=== PATIENT | female | born 1970 | race Caucasian/White ===

== ENCOUNTER → 2020-04-23 | Outpatient (CLI) | payer MEDICAID ==
--- NOTE | 2020-04-23 15:39 | US ---
EXAMINATION TYPE: US pelvic complete DATE OF EXAM: 04/23/2020 COMPARISON: NONE CLINICAL HISTORY: R10.2 pelvic pain, N83.0 ovarian cyst. Intermittent left pelvic pain; family histor y of ovarian cancer in grandmother and maternal aunt; hysterectomy 2010. TECHNIQUE: Transvaginal (TV) and Transabdominal (TA) . Transabdominal sonographic images of the pel vis were acquired. Transvaginal sonographic images were medically necessary to better assess the fol lowing anatomy: ovaries Date of LMP: 2010 hysterectomy EXAM MEASUREMENTS: Uterus: surgically removed Endometrial Stripe: surgically removed Right Ovary: 3.7 x 3.9 x 2.4 cm transvaginally Left Ovary: 3.5 x 3.6 x 1.9 cm transabdominally 1. Uterus: surgically absent 2. Endometrium: surgically absent 3. Right Ovary: couple of follicles seen with larger = 2.6 x 2.0 x 2.3cm 4. Left Ovary: not seen with TV US; couple of follicle seen TA US with larger = 1.9 x 1.9 x 1.5cm Spectral, color and waveform doppler imaging shows good arterial and venous flow within the right o vary. Left ovary was not well seen for vascular assessment. 5. Bilateral Adnexa: wnl 6. Posterior cul-de-sac: wnl Suboptimal study due to body habitus and overlying bowel gas per technologist. Uterus surgically abse nt. No free fluid in pelvis. Both ovaries identified. Right ovary has incidental 2.6 cm thin-walled cyst or dominant follicle. No suspicious adnexal masses. IMPRESSION: Suboptimal study. No suspicious focal mass identified to account for patient's symptoms o f pain.
== END | disposition home or self-care (01) ==
LOC: RADUSWWP 11:12
PROVIDERS: ATTEND Obstetrics & Gynecology
DX: R10.2 Pelvic and perineal pain (principal); N83.02 Follicular cyst of left ovary
CPT/HCPCS: 76830; 76856

== ENCOUNTER → 2020-06-04 | Outpatient (CLI) | payer MEDICAID ==
--- NOTE | 2020-06-05 07:39 | CT ---
EXAMINATION TYPE: CT abdomen pelvis w con DATE OF EXAM: 06/04/2020 HISTORY: EPIGASTRIC PAIN, NAUSEA, bloating. CT DLP: 2961.3mGycm Automated Exposure Control for Dose Reduction was Utilized. CONTRAST: CT scan of the abdomen and pelvis is performed with IV Contrast, patient injected with 100 mL of Isov ue 300. COMPARISON: None. FINDINGS: LUNG BASES: No significant abnormality is appreciated. LIVER/GB: Liver is diffusely low dense suggesting diffuse fatty infiltration. In the posterior segmen t right hepatic lobe inferiorly there is heterogeneous rim enhancing 4.0 cm lesion that appears to sh ow some increased central filling on delayed images, benign hemangioma is suspected. This can be conf irmed with liver protocol contrast-enhanced MRI if desired. Cholecystectomy clips. PANCREAS: No significant abnormality is seen. SPLEEN: No significant abnormality is seen. ADRENALS: No significant abnormality is seen. KIDNEYS: Symmetric cortical medullary uptake and excretion without concerning renal mass or hydroneph rosis seen bilaterally. BOWEL: Oral contrast does not reach level of terminal ileum making evaluation of distal bowel slightl y suboptimal. No suspicious small or large bowel dilatation. UTERUS/ADNEXA: Uterus surgically absent or markedly atrophic. Scattered bilateral pelvic phleboliths. LYMPH NODES: No greater than 1cm abdominal or pelvic lymph nodes are appreciated. OSSEOUS STRUCTURES: Moderate multilevel disc space narrowing and vacuum disc phenomenon centered lowe r thoracic spine and upper lumbar spine. Mild to moderate symmetric narrowing of both hip joints. OTHER: Small to moderate-sized umbilical hernia containing fat and tiny mesenteric vessels. Vertical scar noted extending inferior to this. IMPRESSION: No bowel obstruction. No ascites. No significant acute finding is seen to account for pat ient's clinical symptoms.
== END | disposition home or self-care (01) ==
LOC: RADCTMAIN 05-20 17:19
PROVIDERS: ATTEND Obstetrics & Gynecology
DX: N83.201 Unspecified ovarian cyst, right side (principal)
CPT/HCPCS: 74177; Q9967

== ENCOUNTER → 2020-09-30 | Outpatient (CLI) | payer MEDICAID ==
--- NOTE | 2020-09-30 13:51 | US ---
EXAMINATION TYPE: US pelvis complete transvag DATE OF EXAM: 09/30/2020 COMPARISON: CLINICAL HISTORY: R10.2 pelvic pain. Patient states she feels a pulling in pelvic area. Weight gain. Family hx of ovarian cancer. Partial hysterectomy, still has both ovaries per patient TECHNIQUE: Transvaginal (TV) and Transabdominal (TA) . Transabdominal sonographic images of the pel vis were acquired. Transvaginal sonographic images were medically necessary to better assess the fol lowing anatomy: Ovaries Date of LMP: Hysterectomy EXAM MEASUREMENTS: Uterus: Surgically absent cm Endometrial Stripe: Surgically absent cm 1. Uterus: Surgically absent 2. Endometrium: Surgically absent 3. Right Ovary: Obscured by overlying bowel gas 4. Left Ovary: Obscured by overlying bowel gas 5. Bilateral Adnexa: wnl 6. Posterior cul-de-sac: no free fluid Urinary bladder is sonolucent. The posterior wall is normal. IMPRESSION: 1. Normal post hysterectomy pelvic ultrasound
== END | disposition home or self-care (01) ==
LOC: RADUSWWP 07:05
PROVIDERS: ATTEND Obstetrics & Gynecology
DX: R10.2 Pelvic and perineal pain (principal); Z90.710 Acquired absence of both cervix and uterus
CPT/HCPCS: 76830; 76856

== ENCOUNTER 2020-10-08 18:28 | Inpatient (IN) | payer MEDICAID ==
[2020-10-08] MEDS ORDERED: methylPREDNISolone SOD SUCCI 125 MG/2 ML VIAL IV STA (19:15)
[2020-10-08] MEDS ORDERED: FAMOTIDINE 20 MG/2 ML VIAL IV STA (19:15)
[2020-10-08] MEDS ORDERED: diphenhydrAMINE 50 MG/ML 1 ML VIAL IVP STA (19:15)
[2020-10-08 19:34] LABS: Appearance,Urine Clear (Clear); Bilirubin,Urine Negative (Negative); Blood,Urine Negative (Negative); Color,Urine Yellow; Glucose,Urine (UA) Negative (Negative); Ketones,Urine Negative (Negative); Leukocyte Esterase,Urine Negative (Negative); Nitrite,Urine Negative (Negative); PH, Urine 6.5 (5.0-8.0); Protein,Urine Negative (Negative); Specific Gravity,Urine 1.011 (1.001-1.035); Urobilinogen,Urine <2.0 mg/dL (<2.0)
[2020-10-08 19:35] LABS: Basophils # (A) 0.1 k/uL (0-0.2); Basophils % (A) 1 %; Eosinophils # (A) 0.5 k/uL (0-0.7); Eosinophils % (A) 4 %; HCT 43.6 % (34.0-46.0); HGB 15.1 gm/dL (11.4-16.0); Lymphocytes # (A) 1.6 k/uL (1.0-4.8); Lymphocytes % (A) 15 %; MCH 31.3 pg (25.0-35.0); MCHC 34.6 g/dL (31.0-37.0); MCV 90.4 fL (80.0-100.0); Mean Platelet Volume 7.3; Monocytes # (A) 0.4 k/uL (0-1.0); Monocytes % (A) 4 %; Neutrophils # (A) 8.1 k/uL (1.3-7.7); Neutrophils % (A) 75 %; Platelet Count 287 k/uL (150-450); RBC 4.82 m/uL (3.80-5.40); RDW 12.9 % (11.5-15.5); WBC 10.7 k/uL (3.8-10.6)
[2020-10-08 19:54] LABS: ALT 187 U/L (4-34); AST 293 U/L (14-36); African American GFR (CKD) >90 (>60 ml/min/1.73 sqM); Albumin 4.4 g/dL (3.5-5.0); Alkaline Phosphatase 139 U/L (38-126); Anion Gap 10 mmol/L; Blood Urea Nitrogen 16 mg/dL (7-17); Carbon Dioxide 28 mmol/L (22-30); Chloride 101 mmol/L (98-107); Glucose 106 mg/dL (74-99); Non-African American GFR(CKD) >90 (>60 ml/min/1.73 sqM); Potassium 4.4 mmol/L (3.5-5.1); Sodium 139 mmol/L (137-145); Total Bilirubin 0.5 mg/dL (0.2-1.3); Total Protein 7.7 g/dL (6.3-8.2)
[2020-10-08 19:55] LABS: Partial Thromboplastin Time 22.4 sec (22.0-30.0); Prothrombin Time 10.4 sec (9.0-12.0)
[2020-10-08 20:28] LABS: Lipase 7471 U/L (23-300)
[2020-10-08 20:29] LABS: Amylase 839 U/L (30-110)
--- NOTE | 2020-10-08 20:49 | ED ---
General Adult HPI - General Chief complaint: Recheck/Abnormal Lab/Rx Stated complaint: Pancreatitis Time Seen by Provider: 10/08/20 18:41 Source: patient, EMS, RN notes reviewed, old records reviewed Mode of arrival: EMS Limitations: no limitations - History of Present Illness Initial comments: 50-year-old female presented for evaluation of abdominal pain, and acute pancreatitis. Patient was seen at outside hospital, noted to have elevated lipase and sent to this institution for GI consultation, further evaluation. She states she had an episode of severe epigastric pain prior to ER evaluation. This was associated with nausea. She had previous cholecystectomy. She denies alcohol use or abuse. Denies fever. She reports some intermittent ongoing abdominal pain over the past one year. - Related Data Home Medications Medication Instructions Recorded Confirmed Calcium Carbonate [Calcium] 600 mg PO DAILY 10/08/20 10/08/20 Cholecalciferol [Vitamin D3 (25 25 mcg PO DAILY 10/08/20 10/08/20 Mcg = 1000 Iu)] Famotidine [Pepcid AC] 20 mg PO BID PRN 10/08/20 10/08/20 Fluticasone Nasal [place] [Flonase 1 spray EA NOSTRIL DAILY PRN 10/08/20 10/08/20 Nasal [place]] Furosemide [Lasix] 40 mg PO BID PRN 10/08/20 10/08/20 Ibuprofen [Motrin] 600 mg PO DAILY PRN 10/08/20 10/08/20 Magnesium Oxide [Magox 400] 400 mg PO DAILY 10/08/20 10/08/20 Potassium Chloride ER [K-Dur 10] 20 meq PO BID PRN 10/08/20 10/08/20 Allergies Allergy/AdvReac Type Severity Reaction Status Date / Time butorphanol [From Stadol] Allergy Rash/Hives Verified 10/08/20 19:53 cefazolin [From Kefzol] Allergy Rash/Hives Verified 10/08/20 19:53 meperidine [From Demerol] Allergy Rash/Hives Verified 10/08/20 19:53 morphine Allergy Anaphylaxis Verified 10/08/20 19:53 Review of Systems ROS Statement: Those systems with pertinent positive or pertinent negative responses have been documented in the HPI. ROS Other: All systems not noted in ROS Statement are negative. Past Medical History Past Medical History: Fibromyalgia, Hypertension History of Any Multi-Drug Resistant Organisms: None Reported Past Surgical History: Appendectomy, Section, Cholecystectomy, Hysterectomy Past Psychological History: No Psychological Hx Reported Smoking Status: Former smoker Past Alcohol Use History: None Reported Past Drug Use History: None Reported General Exam Limitations: no limitations General appearance: alert, in no apparent distress Head exam: Present: atraumatic, normocephalic Eye exam: Present: normal appearance, PERRL ENT exam: Present: mucous membranes dry Neck exam: Present: normal inspection. Absent: tenderness, meningismus Respiratory exam: Present: normal lung sounds bilaterally. Absent: respiratory distress, wheezes Cardiovascular Exam: Present: regular rate, normal rhythm GI/Abdominal exam: Present: soft, tenderness. Absent: distended, guarding, rebound Extremities exam: Present: normal capillary refill, pedal edema. Absent: calf tenderness Neurological exam: Present: alert, oriented X3, CN II-XII intact. Absent: motor sensory deficit Skin exam: Present: warm, dry, intact. Absent: cyanosis, diaphoretic Course Vital Signs 10/08/20 18:30 Temperature 99.8 F H Pulse Rate 86 Respiratory 18 Rate Blood Pressure 143/84 O2 Sat by Pulse 87 L Oximetry EKG Findings - EKG Comments: EKG Findings:: EKG: Normal sinus rhythm left anterior fascicular block, no ST segment elevation, rate of 90, AR interval 150, QRS duration 92, QTc 457 Medical Decision Making - Medical Decision Making CT performed, negative for acute findings. Labs are repeated patient has a CBC with a mild leukocytosis and elevated AST, ALT, alkaline phosphatase and elevated lipase of 7400. She will be admitted to internal medicine with gastroenterology on consult. Case is discussed with Dr. Braun - Lab Data Result diagrams: 10/08/20 19:34 10/08/20 19:34 Lab Results 10/08/20 10/08/20 10/08/20 Range/Units 19:34 19:34 19:34 WBC 10.7 H (3.8-10.6) k/uL RBC 4.82 (3.80-5.40) m/uL Hgb 15.1 (11.4-16.0) gm/dL Hct 43.6 (34.0-46.0) % MCV 90.4 (80.0-100.0) fL MCH 31.3 (25.0-35.0) pg MCHC 34.6 (31.0-37.0) g/dL RDW 12.9 (11.5-15.5) % Plt Count 287 (150-450) k/uL MPV 7.3 Neutrophils % 75 % Lymphocytes % 15 % Monocytes % 4 % Eosinophils % 4 % Basophils % 1 % Neutrophils # 8.1 H (1.3-7.7) k/uL Lymphocytes # 1.6 (1.0-4.8) k/uL Monocytes # 0.4 (0-1.0) k/uL Eosinophils # 0.5 (0-0.7) k/uL Basophils # 0.1 (0-0.2) k/uL PT 10.4 (9.0-12.0) sec INR 1.0 (<1.2) APTT 22.4 (22.0-30.0) sec Sodium (137-145) mmol/L Potassium (3.5-5.1) mmol/L Chloride (98-107) mmol/L Carbon Dioxide (22-30) mmol/L Anion Gap mmol/L BUN (7-17) mg/dL Creatinine (0.52-1.04) mg/dL Est GFR (CKD-EPI)AfAm (>60 ml/min/1.73 sqM) Est GFR (CKD-EPI)NonAf (>60 ml/min/1.73 sqM) Glucose (74-99) mg/dL Calcium (8.4-10.2) mg/dL Total Bilirubin (0.2-1.3) mg/dL AST (14-36) U/L ALT (4-34) U/L Alkaline Phosphatase (38-126) U/L Troponin I (0.000-0.034) ng/mL NT-Pro-B Natriuret Pep pg/mL Total Protein (6.3-8.2) g/dL Albumin (3.5-5.0) g/dL Amylase (30-110) U/L Lipase (23-300) U/L Urine Color Urine Appearance (Clear) Urine pH (5.0-8.0) Ur Specific [place] (1.001-1.035) Urine Protein (Negative) Urine Glucose (UA) (Negative) Urine Ketones (Negative) Urine Blood (Negative) Urine Nitrite (Negative) Urine Bilirubin (Negative) Urine Urobilinogen (<2.0) mg/dL Ur Leukocyte Esterase (Negative) Coronavirus (PCR) Not Detected (Not Detectd) 10/08/20 10/08/20 10/08/20 Range/Units 19:34 19:34 19:34 WBC (3.8-10.6) k/uL RBC (3.80-5.40) m/uL Hgb (11.4-16.0) gm/dL Hct (34.0-46.0) % MCV (80.0-100.0) fL MCH (25.0-35.0) pg MCHC (31.0-37.0) g/dL RDW (11.5-15.5) % Plt Count (150-450) k/uL MPV Neutrophils % % Lymphocytes % % Monocytes % % Eosinophils % % Basophils % % Neutrophils # (1.3-7.7) k/uL Lymphocytes # (1.0-4.8) k/uL Monocytes # (0-1.0) k/uL Eosinophils # (0-0.7) k/uL Basophils # (0-0.2) k/uL PT (9.0-12.0) sec INR (<1.2) APTT (22.0-30.0) sec Sodium 139 (137-145) mmol/L Potassium 4.4 (3.5-5.1) mmol/L Chloride 101 (98-107) mmol/L Carbon Dioxide 28 (22-30) mmol/L Anion Gap 10 mmol/L BUN 16 (7-17) mg/dL Creatinine 0.63 (0.52-1.04) mg/dL Est GFR (CKD-EPI)AfAm >90 (>60 ml/min/1.73 sqM) Est GFR (CKD-EPI)NonAf >90 (>60 ml/min/1.73 sqM) Glucose 106 H (74-99) mg/dL Calcium 10.0 (8.4-10.2) mg/dL Total Bilirubin 0.5 (0.2-1.3) mg/dL AST 293 H (14-36) U/L ALT 187 H (4-34) U/L Alkaline Phosphatase 139 H (38-126) U/L Troponin I <0.012 (0.000-0.034) ng/mL NT-Pro-B Natriuret Pep pg/mL Total Protein 7.7 (6.3-8.2) g/dL Albumin 4.4 (3.5-5.0) g/dL Amylase 839 H* (30-110) U/L Lipase 7471 H (23-300) U/L Urine Color Yellow Urine Appearance Clear (Clear) Urine pH 6.5 (5.0-8.0) Ur Specific [place] 1.011 (1.001-1.035) Urine Protein Negative (Negative) Urine Glucose (UA) Negative (Negative) Urine Ketones Negative (Negative) Urine Blood Negative (Negative) Urine Nitrite Negative (Negative) Urine Bilirubin Negative (Negative) Urine Urobilinogen <2.0 (<2.0) mg/dL Ur Leukocyte Esterase Negative (Negative) Coronavirus (PCR) (Not Detectd) 10/08/20 Range/Units 19:34 WBC (3.8-10.6) k/uL RBC (3.80-5.40) m/uL Hgb (11.4-16.0) gm/dL Hct (34.0-46.0) % MCV (80.0-100.0) fL MCH (25.0-35.0) pg MCHC (31.0-37.0) g/dL RDW (11.5-15.5) % Plt Count (150-450) k/uL MPV Neutrophils % % Lymphocytes % % Monocytes % % Eosinophils % % Basophils % % Neutrophils # (1.3-7.7) k/uL Lymphocytes # (1.0-4.8) k/uL Monocytes # (0-1.0) k/uL Eosinophils # (0-0.7) k/uL Basophils # (0-0.2) k/uL PT (9.0-12.0) sec INR (<1.2) APTT (22.0-30.0) sec Sodium (137-145) mmol/L Potassium (3.5-5.1) mmol/L Chloride (98-107) mmol/L Carbon Dioxide (22-30) mmol/L Anion Gap mmol/L BUN (7-17) mg/dL Creatinine (0.52-1.04) mg/dL Est GFR (CKD-EPI)AfAm (>60 ml/min/1.73 sqM) Est GFR (CKD-EPI)NonAf (>60 ml/min/1.73 sqM) Glucose (74-99) mg/dL Calcium (8.4-10.2) mg/dL Total Bilirubin (0.2-1.3) mg/dL AST (14-36) U/L ALT (4-34) U/L Alkaline Phosphatase (38-126) U/L Troponin I (0.000-0.034) ng/mL NT-Pro-B Natriuret Pep 93 pg/mL Total Protein (6.3-8.2) g/dL Albumin (3.5-5.0) g/dL Amylase (30-110) U/L Lipase (23-300) U/L Urine Color Urine Appearance (Clear) Urine pH (5.0-8.0) Ur Specific [place] (1.001-1.035) Urine Protein (Negative) Urine Glucose (UA) (Negative) Urine Ketones (Negative) Urine Blood (Negative) Urine Nitrite (Negative) Urine Bilirubin (Negative) Urine Urobilinogen (<2.0) mg/dL Ur Leukocyte Esterase (Negative) Coronavirus (PCR) (Not Detectd) Disposition Clinical Impression: Acute pancreatitis Disposition: ADMITTED IP TO THIS [facility] Condition: Stable Is patient prescribed a controlled substance at d/c from ED?: No Referrals: Nonstaff,Physician [Primary Care Provider] - 1-2 days Decision to Admit Reason: Admit from EC Decision Date: 10/08/20 Decision Time: 22:03
--- NOTE | 2020-10-08 21:47 | CT ---
EXAMINATION TYPE: CT abdomen pelvis w con DATE OF EXAM: 10/08/2020 COMPARISON: 06/04/2020. HISTORY: abdominal pain and distention CT DLP: 3425 mGycm Automated exposure control for dose reduction was used. TECHNIQUE: Helical acquisition of images was performed from the lung bases through the pelvis. CONTRAST: Performed without Oral Contrast and with IV Contrast, patient injected with 100 mL of Isovue 300. FINDINGS: LUNG BASES: No significant abnormality is appreciated. LIVER/GB: No acute abnormality is appreciated. Hepatic steatosis with stable 4 cm hypoattenuating rig ht hepatic lesion with centripetal enhancement, compatible with hemangioma. Cholecystectomy. No signi ficant biliary ductal dilatation. PANCREAS: No significant abnormality is seen. SPLEEN: No significant abnormality is seen. ADRENALS: No significant abnormality is seen. KIDNEYS: No significant abnormality is seen. FREE AIR: No free air is visualized. RETROPERITONEAL ADENOPATHY: None visualized REPRODUCTIVE ORGANS: No significant abnormality is seen URINARY BLADDER: No significant abnormality is seen. PELVIC ADENOPATHY: None visualized. OSSEOUS STRUCTURES: No significant abnormality is seen. BOWEL: No significant abnormality is seen. OTHER: None IMPRESSION: NO ACUTE ABNORMALITY. CHRONIC FINDINGS ABOVE.
[2020-10-08] MEDS ORDERED: NALOXONE 0.4 MG/ML 1 ML VIAL IV PRN (22:01)
--- NOTE | 2020-10-09 02:06 | P.HPIM ---
History of Present Illness H&P Date: 10/09/20 The patient is a 50-year-old female with a PMH of cholecystectomy, hepatic steatosis, and of the brain hemangioma who presented to the emergency room as a transfer for acute pancreatitis. The patient reports that she has had long- standing epigastric discomfort, brought on by exertion and at rest with associated bloating and nausea. The patient notes that she has had these complaints for the past 5-6 months but that her episode today was different. She notes that she had a large meal for [employer] and that soon after, she developed sharp 7 out of 10 bandlike upper abdominal discomfort with associated nausea and shortness of breath. She subsequently went to her local hospital where laboratory evaluation was consistent with pancreatitis and the patient was subsequently send to [facility] for GI evaluation. At time of interview, she notes her pain had improved to a 3/10. The patient notes that due to her exertional component with her history of symptoms, she has been evaluated by cardiology and underwent a cardiac catheterization 6 months ago which was unremarkable. She also reports multiple other complaints including intermittent lower extremity edema for which she takes Lasix when necessary, mild diffuse joint pain, and a 35 lbs weight gain over the past 6 months despite a caloric restricted diet. Notes that she was tested for hypothyroidism and that her TSH was unremarkable. She reports having a scheduled appointment with a sap trainer in a few weeks for her above symptoms. She underwent an extensive evaluation in the emergency room which was all reviewed with a CT abdomen and pelvis showing a stable 4 cm hemangioma along with hepatic steatosis but otherwise unremarkable with laboratory evaluation with a lipase of 7471, amylase a 39, and a total bilirubin 0.5 with AST 293 and ALT 187. Review of Systems Pertinent positives and negatives as discussed in HPI, a complete review of systems was performed and all other systems are negative. Past Medical History Past Medical History: Fibromyalgia, Hypertension History of Any Multi-Drug Resistant Organisms: None Reported Past Surgical History: Appendectomy, Section, Cholecystectomy, Hys terectomy Past Psychological History: No Psychological Hx Reported Smoking Status: Former smoker Past Alcohol Use History: None Reported Past Drug Use History: None Reported Medications and Allergies Home Medications Medication Instructions Recorded Confirmed Type Calcium Carbonate [Calcium] 600 mg PO DAILY 10/08/20 10/08/20 History Cholecalciferol [Vitamin D3 (25 25 mcg PO DAILY 10/08/20 10/08/20 History Mcg = 1000 Iu)] Famotidine [Pepcid AC] 20 mg PO BID PRN 10/08/20 10/08/20 History Fluticasone Nasal [place] [Flonase 1 spray EA NOSTRIL DAILY PRN 10/08/20 10/08/20 History Nasal [place]] Furosemide [Lasix] 40 mg PO BID PRN 10/08/20 10/08/20 History Ibuprofen [Motrin] 600 mg PO DAILY PRN 10/08/20 10/08/20 History Magnesium Oxide [Magox 400] 400 mg PO DAILY 10/08/20 10/08/20 History Potassium Chloride ER [K-Dur 10] 20 meq PO BID PRN 10/08/20 10/08/20 History Allergies Allergy/AdvReac Type Severity Reaction Status Date / Time butorphanol [From Stadol] Allergy Rash/Hives Verified 10/08/20 19:53 cefazolin [From Kefzol] Allergy Rash/Hives Verified 10/08/20 19:53 Iodine and Iodide Containing Allergy Dyspnea Verified 10/09/20 00:18 Produc meperidine [From Demerol] Allergy Rash/Hives Verified 10/08/20 19:53 morphine Allergy Anaphylaxis Verified 10/08/20 19:53 Physical Exam Vitals: Vital Signs Temp Pulse Resp BP Pulse Ox 10/09/20 00:04 98.9 F 74 16 142/78 98 10/08/20 22:00 98.9 F 82 16 148/86 96 10/08/20 18:30 99.8 F H 86 18 143/84 87 L Intake and Output 10/08/20 10/08/20 10/09/20 14:59 22:59 06:59 Other: Weight 142.882 kg General: non toxic, no distress, appears at stated age, severely obese Derm: no unusual rashes/lesions no unusual ecchymoses, warm, dry Head: atraumatic, normocephalic, symmetric Eyes: EOMI, no lid lag, anicteric sclera, pupils equal round reactive to light ENT: Nose and ears atraumatic, no thrush, no pharyngeal erythema Neck: No thyromegaly, no cervical lymphadenopathy, trachea midline, supple Mouth: no lip lesion, mucus membranes moist Cardiovascular: S1S2 reg, no murmur, positive posterior tibial pulse bilateral, no edema, capillary refill less than 2 seconds Lungs: CTA bilateral, no rhonchi, no rales , no accessory muscle use Abdominal: soft, mild epigastric tenderness, no guarding, no appreciable o rganomegaly, normal bowel sounds Ext: no gross muscle atrophy, muscle strength 5 out of 5 in all 4 extremities grossly, no contractures, Neuro: CN II-XI grossly intact, light touch intact all 4 extremities, finger to nose within normal limits, Psych: Alert, oriented, appropriate affect Results CBC & Chem 7: 10/08/20 19:34 10/08/20 19:34 Labs: Abnormal Lab Results - Last 24 Hours (Table) 10/08/20 10/08/20 Range/Units 19:34 19:34 WBC 10.7 H (3.8-10.6) k/uL Neutrophils # 8.1 H (1.3-7.7) k/uL Glucose 106 H (74-99) mg/dL AST 293 H (14-36) U/L ALT 187 H (4-34) U/L Alkaline Phosphatase 139 H (38-126) U/L Amylase 839 H* (30-110) U/L Lipase 7471 H (23-300) U/L Assessment and Plan Plan: Acute pancreatitis, unclear etiology with history of cholecystectomy -IV fluids -Pain control -Antiemetics -Nothing by mouth for now -GI consult Unintentional weight gain, joint pain, lower extremity edema -Obtain TSH -Patient scheduled for rheumatological evaluation as an outpatient DVT prophylaxis -Heparin subq The patient is admitted with an anticipated greater than 2 midnight stay for evaluation of acute pancreatitis CODE STATUS: Full Code Discussed with: Patient Anticipated discharge date: 2-[address]: Home A total of 35 minutes was spent on the care of this complex patient more than 50% of the time was spent in counseling and care coordination.
[2020-10-09] MEDS: SODIUM CHLORIDE 0.9% 1,000 ML IV SCH ×3 (02:20→20:30)
[2020-10-09] MEDS: HYDROcodone/APAP 5-325MG 1 EACH TAB PO PRN ×2 (03:45→15:31)
[2020-10-09 06:42] LABS: HCT 42.1 % (34.0-46.0); HGB 14.4 gm/dL (11.4-16.0); MCH 31.5 pg (25.0-35.0); MCHC 34.2 g/dL (31.0-37.0); Mean Platelet Volume 7.7; Platelet Count 262 k/uL (150-450); RBC 4.57 m/uL (3.80-5.40); RDW 12.9 % (11.5-15.5); WBC 7.5 k/uL (3.8-10.6)
[2020-10-09 06:53] LABS: ALT 149 U/L (4-34); AST 104 U/L (14-36); African American GFR (CKD) >90 (>60 ml/min/1.73 sqM); Albumin 4.2 g/dL (3.5-5.0); Alkaline Phosphatase 124 U/L (38-126); Anion Gap 7 mmol/L; Blood Urea Nitrogen 17 mg/dL (7-17); Calcium 9.9 mg/dL (8.4-10.2); Carbon Dioxide 30 mmol/L (22-30); Chloride 101 mmol/L (98-107); Glucose 146 mg/dL (74-99); Non-African American GFR(CKD) >90 (>60 ml/min/1.73 sqM); Potassium 4.8 mmol/L (3.5-5.1); Sodium 138 mmol/L (137-145); Total Bilirubin 0.4 mg/dL (0.2-1.3); Total Protein 7.2 g/dL (6.3-8.2)
[2020-10-09] MEDS: ONDANSETRON 4 MG/2 ML VIAL IVP PRN ×2 (07:20→14:40)
[2020-10-09 08:53] LABS: Cholesterol 202 mg/dL (<200); HDL Cholesterol 49 mg/dL (40-60); LDL Cholesterol,Calculated 146 mg/dL (0-99); Triglycerides 37 mg/dL (<150)
[2020-10-09 09:40] LABS: Amylase 138 U/L (30-110); Lipase 453 U/L (23-300)
[2020-10-09] MEDS: HEPARIN SODIUM,PORCINE/PF 5,000 UNIT/0.5 ML SYRINGE SQ SCH ×3 (09:54→22:32)
--- NOTE | 2020-10-09 13:25 | US ---
EXAMINATION TYPE: US abdomen complete DATE OF EXAM: 10/09/2020 COMPARISON: CT 10/08/20 CLINICAL HISTORY: abdominal pain. x 1 year EXAM MEASUREMENTS: Liver Length: 19.8 cm Gallbladder Wall: Surgically absent cm CBD: 0.5 cm Spleen: 11.0 cm Right Kidney: 11.3 x 6.4 x 5.1 cm Left Kidney: 12.5 x 6.0 x 5.6 cm Pancreas: ? hypoechoic area in body = 3.2 cm, tail obscured by bowel gas. Liver: hypoechoic liver mass = 6.1 x 5.0 x 3.9 cm, hepatomegaly. Gallbladder: Surgically absent Evidence for sonographic Aparicio's sign: No CBD: wnl Spleen: wnl Right Kidney: No hydronephrosis or masses seen Left Kidney: No hydronephrosis or masses seen Upper IVC: wnl Abd Aorta: wnl Sub optimal portable exam. Large patient size. IMPRESSION: 1. Suspicious hepatic mass. 2. Hepatomegaly. 3. Possible hypoechoic lesion within the pancreas, not identified on CT. Follow-up or additional eval uation with MRI with contrast could be performed.
--- NOTE | 2020-10-09 13:37 | P.PN ---
Subjective Progress Note Date: 10/09/20 Patient was seen and evaluated by me today. She is still complaining of abdominal pain in the epigastric area that she described as mild and 4 out of 10 in severity. She denies any nausea or vomiting. She told me that she is not hungry and does not feel like eating at this time. Objective - Vital Signs Vital signs: Vital Signs Temp 98.5 F 10/09/20 08:55 Pulse 82 10/09/20 08:55 Resp 16 10/09/20 08:55 BP 138/78 10/09/20 08:55 Pulse Ox 94 L 10/09/20 08:55 Intake & Output 10/08/20 10/09/20 10/09/20 18:59 06:59 18:59 Weight 142.882 kg 141.5 kg Other: Voiding Method Toilet # Voids 2 - Exam General: The patient is awake and alert, in no distress Eye: there is normal conjunctiva bilaterally. Neck: The neck is supple, there is no JVD. Cardiovascular: Normal S1-S2, no S3-S4, no murmurs. Respiratory: Lungs clear to auscultation bilaterally Gastrointestinal: Abdomen is soft, nontender Musculoskeletal: There is no pedal edema. Neurological:. Speech is normal. Skin: Skin is warm and dry - Labs CBC & Chem 7: 10/09/20 06:02 10/09/20 06:02 Labs: Abnormal Lab Results - Last 24 Hours (Table) 10/08/20 10/08/20 10/09/20 Range/Units 19:34 19:34 06:02 WBC 10.7 H (3.8-10.6) k/uL Neutrophils # 8.1 H (1.3-7.7) k/uL Glucose 106 H 146 H (74-99) mg/dL AST 293 H 104 H (14-36) U/L ALT 187 H 149 H (4-34) U/L Alkaline Phosphatase 139 H (38-126) U/L Cholesterol (<200) mg/dL LDL Cholesterol, Calc (0-99) mg/dL Amylase 839 H* (30-110) U/L Lipase 7471 H (23-300) U/L 10/09/20 10/09/20 Range/Units 06:02 08:42 WBC (3.8-10.6) k/uL Neutrophils # (1.3-7.7) k/uL Glucose (74-99) mg/dL AST (14-36) U/L ALT (4-34) U/L Alkaline Phosphatase (38-126) U/L Cholesterol 202 H (<200) mg/dL LDL Cholesterol, Calc 146 H (0-99) mg/dL Amylase 138 H (30-110) U/L Lipase 453 H (23-300) U/L Assessment and Plan Assessment: This is a 50-year-old female with past medical history noted below who presented to the emergency room with abdominal pain. Patient was evaluated at the outside emergency room and transferred to our hospital for further management of her medical problems noted below. 1. Acute pancreatitis, exact etiology unclear. Patient had a history of cholecystectomy. She denies any alcohol use. Triglyceride level within acceptable range. GI consulted for further evaluation. NIMCO and IgG ordered. 2. Suspicious hepatic mass and possible pancreatic lesion noted on ultrasound. I would obtain MRI for further evaluation. Liver lesion noted is most likely hemangioma seen on previous computed tomography scan. 3. Chronic medical problems, hepatic steatosis, morbid obesity, 4. DVT prophylaxis with subcu heparin Today, I reviewed her medication list and lab work results. Continue nothing by mouth for now. Appreciate GI recommendations. Aggressive IV fluid hydration and pain control as needed. Repeat lab work in the morning. Continue to mon itor clinical status closely.
[2020-10-09] MEDS: PANTOPRAZOLE 40 MG/10 ML VIAL IVP SCH ×2 (14:45→22:32)
--- NOTE | 2020-10-09 17:41 | P.CONS ---
History of Present Illness - Reason for Consult Consult date: 10/09/20 Pancreatitis Requesting physician: Amelia Braun - Chief Complaint Abdominal pain - History of Present Illness 50-year-old female with a medical history significant for hepatic steatosis, fibromyalgia, hypertension who presented as a transfer from outside hospital for elevated lipase and pancreatitis. The patient has a constellation of symptoms unrelated to her current presentation which she has complained about, she describes dyspnea on exertion, increased weight gain but recently developed abdominal pain after eating a hamburger. She reports pain was sharp in the p eriumbilical and epigastric region for abdomen and began approximately 45 minutes after eating. She was noted to have elevation in amylase and lipase at 839 and 7471 respectively. Computed tomography scan of the abdomen and pelvis significant for hepatic steatosis, stable 4 cm right hepatic lesion consistent with hemangioma with no CBD ductal dilation and prior cholecystectomy noted and a normal-appearing pancreas. Previously the patient has undergone endoscopic evaluation with EGD and colonoscopy at [facility] in the [facility] for change in bowel habits with patient reporting light stool which are loose and states that she had diverticulosis and ulcers at that time and was started on Carafate and Protonix for 4 months. Laboratory evaluation significant for improved amylase and lipase at [id number] today with total bilirubin 0.4, alkaline phosphatase 124, AST 104 and ALT 149 with WBC 14.4 and platelet count of 262,000 with an INR of 1.0. Review of Systems REVIEW OF SYSTEMS: CONSTITUTIONAL: Denies any fevers, chills, but she does report weight gain. CARDIOVASCULAR: Denies any chest pain, palpitations high or low blood pressures RESPIRATORY: Denies any hemoptysis or cough but does report shortness of breath worse on exertion. GENITOURINARY: No dysuria or hematuria. MUSCULOSKELETAL: No weakness reported. SKIN: Denies any new rashes or lesions, jaundice or pallor. PSYCHIATRIC: Denies any depression or anxiety. NEUROLOGY: Denies headache, denies any new focal deficits. EARS/NOSE/THROAT: No recent hearing change, congestion, nasal discharge or sore throat. EYES: No pain in eyes, discharge or change in vision. GASTROINTESTINAL: As per HPI. Past Medical History Past Medical History: Fibromyalgia, Hypertension History of Any Multi-Drug Resistant Organisms: None Reported Past Surgical History: Appendectomy, Section, Cholecystectomy, Hysterectomy Past Anesthesia/Blood Transfusion Reactions: No Reported Reaction Past Psychological History: No Psychological Hx Reported Smoking Status: Former smoker Past Alcohol Use History: None Reported Past Drug Use History: None Reported - Past Family History Father Family Medical History: Diabetes Mellitus Mother Additional Family Medical History / Comment(s): Multiple sclerosis. Medications and Allergies Home Medications Medication Instructions Recorded Confirmed Type Calcium Carbonate [Calcium] 600 mg PO DAILY 10/08/20 10/08/20 History Cholecalciferol [Vitamin D3 (25 25 mcg PO DAILY 10/08/20 10/08/20 History Mcg = 1000 Iu)] Famotidine [Pepcid AC] 20 mg PO BID PRN 10/08/20 10/08/20 History Fluticasone Nasal [place] [Flonase 1 spray EA NOSTRIL DAILY PRN 10/08/20 10/08/20 History Nasal [place]] Furosemide [Lasix] 40 mg PO BID PRN 10/08/20 10/08/20 History Ibuprofen [Motrin] 600 mg PO DAILY PRN 10/08/20 10/08/20 History Magnesium Oxide [Magox 400] 400 mg PO DAILY 10/08/20 10/08/20 History Potassium Chloride ER [K-Dur 10] 20 meq PO BID PRN 10/08/20 10/08/20 History Allergies Allergy/AdvReac Type Severity Reaction Status Date / Time butorphanol [From Stadol] Allergy Rash/Hives Verified 10/09/20 05:40 cefazolin [From Kefzol] Allergy Rash/Hives Verified 10/09/20 05:40 Iodine and Iodide Containing Allergy Dyspnea Verified 10/09/20 05:40 Produc meperidine [From Demerol] Allergy Rash/Hives Verified 10/09/20 05:40 morphine Allergy Anaphylaxis Verified 10/09/20 05:40 Physical Exam Vitals: Vital Signs Temp Pulse Pulse Resp BP BP Pulse Ox 10/09/20 13:55 97.9 F 79 16 111/67 95 10/09/20 08:55 98.5 F 82 16 138/78 94 L 10/09/20 02:22 87 16 145/74 93 L 10/09/20 00:30 99.4 F 85 18 152/102 96 10/09/20 00:04 98.9 F 74 16 142/78 98 10/08/20 22:00 98.9 F 82 16 148/86 96 10/08/20 18:30 99.8 F H 86 18 143/84 87 L Intake and Output 10/09/20 10/09/20 10/09/20 06:59 14:59 22:59 Other: Voiding Method Toilet # Voids 2 Weight 141.5 kg On physical examination, patient appears comfortable in no apparent distress. HEAD: Normocephalic, atraumatic. EYES: No scleral icterus. No conjunctival injection. MOUTH: No lesions, tongue midline. NECK: Trachea midline, no gross abnormalities. CHEST: Clear to auscultation with no wheezing or rhonchi appreciated. HEART: Regular rate and rhythm. ABDOMEN: Soft, obese. Bowel sounds are positive. No organomegaly. No guarding or rigidity. EXTREMITIES: No pedal edema. SKIN: No rashes, no jaundice. NEUROLOGIC: Alert and oriented x3. No focal deficits. Results CBC & Chem 7: 10/09/20 06:02 10/09/20 06:02 Labs: Abnormal Lab Results - Last 24 Hours (Table) 10/08/20 10/08/20 10/09/20 Range/Units 19:34 19:34 06:02 WBC 10.7 H (3.8-10.6) k/uL Neutrophils # 8.1 H (1.3-7.7) k/uL Glucose 106 H 146 H (74-99) mg/dL AST 293 H 104 H (14-36) U/L ALT 187 H 149 H (4-34) U/L Alkaline Phosphatase 139 H (38-126) U/L Cholesterol (<200) mg/dL LDL Cholesterol, Calc (0-99) mg/dL Amylase 839 H* (30-110) U/L Lipase 7471 H (23-300) U/L 10/09/20 10/09/20 Range/Units 06:02 08:42 WBC (3.8-10.6) k/uL Neutrophils # (1.3-7.7) k/uL Glucose (74-99) mg/dL AST (14-36) U/L ALT (4-34) U/L Alkaline Phosphatase (38-126) U/L Cholesterol 202 H (<200) mg/dL LDL Cholesterol, Calc 146 H (0-99) mg/dL Amylase 138 H (30-110) U/L Lipase 453 H (23-300) U/L CT scan - abdomen: report reviewed (Computed tomography scan of the abdomen with findings of hepatic steatosis, hepatic hemangioma, no CBD dilation, cholecystectomy and normal pancreas) Assessment and Plan (1) Acute pancreatitis Narrative/Plan: 50-year-old female presenting for abdominal pain and elevated lipase currently being treated for acute uncomplicated pancreatitis with no abnormalities or complicated pancreatitis seen on computed tomography scan with findings of postcholecystectomy state, hepatic steatosis, and hepatic hemangioma. Patient denies any excessive alcohol use, triglyceride level normal, she is status post cholecystectomy in the past. Unclear etiology of pancreatitis with no necrosis or pseudocyst formation seen on imaging. Current Visit: Yes Status: Acute Code(s): K85.90 - ACUTE PANCREATITIS WITHOUT NECROSIS OR INFECTION, UNSP SNOMED Code(s): 007337196 (2) Hepatic steatosis Current Visit: Yes Status: Acute Code(s): K76.0 - FATTY (CHANGE OF) LIVER, NOT ELSEWHERE CLASSIFIED SNOMED Code(s): 053950214 (3) Elevated liver enzymes Current Visit: Yes Status: Acute Code(s): R74.8 - ABNORMAL LEVELS OF OTHER SERUM ENZYMES SNOMED Code(s): 354718669 (4) Abdominal pain Current Visit: Yes Status: Acute Code(s): R10.9 - UNSPECIFIED ABDOMINAL PAIN SNOMED Code(s): 82986776 Plan: Supportive care Nothing by mouth Encourage ambulation as tolerated Continue pain control Continue IV hydration Continue monitor CBC, BMP and LFTs Ultrasound performed in evaluation with no acute findings noted with hepatic mass consistent with prior hemangioma seen as well as a hyperechoic area in the body of the pancreas Continue supportive care and recommendation is for MRI of the abdomen with and without contrast for evaluation of hepatic and pancreatic abnormalities in 4-6 weeks after resolution of acute pancreatitis NO plans for endoscopic evaluation, she previously had EGD and colonoscopy within the past 12-18 months and can follow-up with her primary gastr oenterologist after discharge Thank you for allowing us to participate in the care of the patient
[2020-10-10] MEDS: SODIUM CHLORIDE 0.9% 1,000 ML IV SCH (03:38)
[2020-10-10] MEDS: HYDROcodone/APAP 5-325MG 1 EACH TAB PO PRN (03:40)
[2020-10-10 07:56] LABS: ALT 123 U/L (4-34); AST 86 U/L (14-36); African American GFR (CKD) >90 (>60 ml/min/1.73 sqM); Albumin 3.9 g/dL (3.5-5.0); Alkaline Phosphatase 110 U/L (38-126); Anion Gap 7 mmol/L; Blood Urea Nitrogen 18 mg/dL (7-17); Calcium 9.4 mg/dL (8.4-10.2); Carbon Dioxide 26 mmol/L (22-30); Chloride 104 mmol/L (98-107); Glucose 95 mg/dL (74-99); Lipase 217 U/L (23-300); Non-African American GFR(CKD) >90 (>60 ml/min/1.73 sqM); Potassium 4.4 mmol/L (3.5-5.1); Sodium 137 mmol/L (137-145); Total Bilirubin 0.5 mg/dL (0.2-1.3); Total Protein 6.7 g/dL (6.3-8.2)
[2020-10-10] MEDS ORDERED: LACTULOSE 20 GM/30 ML CUP PO ONE (09:00)
[2020-10-10 09:08] VITALS: BP 133/73; PULSE 75; RESP 16; TEMP 97.7
[2020-10-10] MEDS: HEPARIN SODIUM,PORCINE/PF 5,000 UNIT/0.5 ML SYRINGE SQ SCH (09:29)
[2020-10-10] MEDS: PANTOPRAZOLE 40 MG/10 ML VIAL IVP SCH (09:29)
--- NOTE | 2020-10-10 12:37 | P.PN ---
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 Patient is very hostile and accusatory. In spite of over 15 minutes in conversation with her and her yesterday and an additional 10 minutes today continuing to explain her disease course and the results of her workup she continues to reask the same questions. Again, extensive discussion with the patient explaining the need for follow-up with MRI as well as the natural progression of acute uncomplicated pancreatitis, in spite of the explanations and time spent with the patient she seems to be disappointed with the workup to this point. Objective - Vital Signs Vital signs: Vital Signs Temp 97.7 F 10/10/20 08:05 Pulse 75 10/10/20 08:05 Resp 16 10/10/20 08:05 BP 133/73 10/10/20 08:05 Pulse Ox 96 10/10/20 08:05 Intake & Output 10/09/20 10/10/20 10/10/20 18:59 06:59 18:59 Intake Total 120 1500 Balance 120 1500 Intake: Intake, IV Titration 1500 Amount Sodium Chloride 0.9% 1, 1500 000 ml @ 150 mls/hr IV . Q6H40M [facility] Rx#:[id number] Oral 120 Other: Voiding Method Toilet Toilet # Voids 2 - Exam On physical examination, patient appears comfortable in no apparent distress. HEAD: Normocephalic, atraumatic. EYES: No scleral icterus. No conjunctival injection. MOUTH: No lesions, tongue midline. NECK: Trachea midline, no gross abnormalities. CHEST: No respiratory distress. EXTREMITIES: No pedal edema. SKIN: No rashes, no jaundice. NEUROLOGIC: Alert and oriented x3. No focal deficits. - Labs CBC & Chem 7: 10/09/20 06:02 10/10/20 07:05 Labs: Abnormal Lab Results - Last 24 Hours (Table) 10/10/20 Range/Units 07:05 BUN 18 H (7-17) mg/dL AST 86 H (14-36) U/L ALT 123 H (4-34) U/L Assessment and Plan (1) Acute pancreatitis Narrative/Plan: 50-year-old female presenting for abdominal pain and elevated lipase currently being treated for acute uncomplicated pancreatitis with no abnormalities or complicated pancreatitis seen on computed tomography scan with findings of postc holecystectomy state, hepatic steatosis, and hepatic hemangioma. Patient denies any excessive alcohol use, triglyceride level normal, she is status post cholecystectomy in the past. Unclear etiology of pancreatitis with no necrosis or pseudocyst formation seen on imaging. Current Visit: Yes Status: Acute Code(s): K85.90 - ACUTE PANCREATITIS WITHOUT NECROSIS OR INFECTION, UNSP SNOMED Code(s): 105457054 (2) Hepatic steatosis Current Visit: Yes Status: Acute Code(s): K76.0 - FATTY (CHANGE OF) LIVER, NOT ELSEWHERE CLASSIFIED SNOMED Code(s): 002240299 (3) Elevated liver enzymes Current Visit: Yes Status: Acute Code(s): R74.8 - ABNORMAL LEVELS OF OTHER SERUM ENZYMES SNOMED Code(s): 328677490 (4) Abdominal pain Current Visit: Yes Status: Acute Code(s): R10.9 - UNSPECIFIED ABDOMINAL PAIN SNOMED Code(s): 32792742 Plan: Supportive care Okay for diet as tolerated Encourage ambulation as tolerated Continue pain control Continue IV hydration Continue monitor CBC, BMP and LFTs Ultrasound performed in evaluation with no acute findings noted with hepatic mass consistent with prior hemangioma seen as well as a hyperechoic area in the body of the pancreas Continue supportive care and recommendation is for MRI of the abdomen with and without contrast for evaluation of hepatic and pancreatic abnormalities in 4-6 weeks after resolution of acute pancreatitis NO plans for endoscopic evaluation, she previously had EGD and colonoscopy within the past 12-18 months and can follow-up with her primary seismograph supervisor after discharge Extensive time spent with the patient today and yesterday as well as with her yesterday and explanation of her disease course and recommendations, u nfortunately she remains unsatisfied with the care and was quite hostile and accusatory Okay for discharge with follow-up as explained
--- NOTE | 2020-10-10 13:11 | P.DS ---
Providers Date of admission: 10/08/20 22:02 Expected date of discharge: 10/10/20 Attending physician: Amelia Braun MD Consults: 10/08/20 22:01 Consult Physician Routine Consulting Provider: Kurt De Leon Consult Reason/Comments: Acute pancreatitis Do you want consulting provider notified?: Yes Primary care physician: Physician Nonstaff Hospital Course: This is a 50-year-old female with past medical history noted below who presented to the emergency room with abdominal pain. Patient was evaluated at the outside emergency room and transferred to our hospital for further management of her medical problems noted below. 1. Acute pancreatitis, exact etiology unclear. Patient had a history of cholecystectomy. She denies any alcohol use. Triglyceride level within accep table range. GI consulted for further evaluation. NIMCO and IgG ordered. 2. Suspicious hepatic mass and possible pancreatic lesion noted on ultrasound. Liver lesion noted is most likely hemangioma seen on previous computed tomography scan. I ordered MRI for further evaluation but due to body habitus patient was unable to fit in our hospital MRI and will require open MRI 3. Chronic medical problems, hepatic steatosis, morbid obesity, Patient's overall condition improved significantly. She was able to tolerate regular diet with no difficulty. She will be discharged home in a stable con dition. She was advised to follow-up with GI for MRI of the pancreas with contrast in the next 4 weeks. She had elected to follow-up with GI out of town. ly. Patient Condition at Discharge: Stable Plan - Discharge Summary Discharge Rx Participant: No New Discharge Prescriptions: Continue Magnesium Oxide [Magox 400] 400 mg PO DAILY Calcium Carbonate [Calcium] 600 mg PO DAILY Potassium Chloride ER [K-Dur 10] 20 meq PO BID PRN PRN Reason: WITH LASIX Ibuprofen [Motrin] 600 mg PO DAILY PRN PRN Reason: Pain Cholecalciferol [Vitamin D3 (25 Mcg = 1000 Iu)] 25 mcg PO DAILY Furosemide [Lasix] 40 mg PO BID PRN PRN Reason: Edema Fluticasone Nasal [place] [Flonase Nasal [place]] 1 spray EA NOSTRIL DAILY PRN PRN Reason: Allergy Symptoms Famotidine [Pepcid AC] 20 mg PO BID PRN PRN Reason: Gi Upset Discharge Medication List Calcium Carbonate [Calcium] 600 mg PO DAILY 10/08/20 [History] Cholecalciferol [Vitamin D3 (25 Mcg = 1000 Iu)] 25 mcg PO DAILY 10/08/20 [History] Famotidine [Pepcid AC] 20 mg PO BID PRN 10/08/20 [History] Fluticasone Nasal [place] [Flonase Nasal [place]] 1 spray EA NOSTRIL DAILY PRN 10/08/20 [History] Furosemide [Lasix] 40 mg PO BID PRN 10/08/20 [History] Ibuprofen [Motrin] 600 mg PO DAILY PRN 10/08/20 [History] Magnesium Oxide [Magox 400] 400 mg PO DAILY 10/08/20 [History] Potassium Chloride ER [K-Dur 10] 20 meq PO BID PRN 10/08/20 [History] Follow up Appointment(s)/Referral(s): Nonstaff,Physician [Primary Care Provider] - 1-2 days Discharge Disposition: HOME SELF-CARE
[2020-10-10 14:08] VITALS: BMI 48.8
[2020-10-12 13:40] LABS: IgG Subclass 3 51.9 mg/dL (11.0-85.0)
== END 2020-10-10 14:45 | disposition home or self-care (01) | DRG 439 ==
LOC: EC 18:28 → 6PED 22:02
PROVIDERS: ADMIT Internal Medicine; ATTEND Internal Medicine
DX: K85.90 Acute pancreatitis without necrosis or infection, unspecified (principal); Z68.42 Body mass index [BMI] 45.0-49.9, adult; K76.0 Fatty (change of) liver, not elsewhere classified; D18.02 Hemangioma of intracranial structures; E66.01 Morbid (severe) obesity due to excess calories; Z20.822 Contact with and (suspected) exposure to COVID-19; D18.09 Hemangioma of other sites; I44.4 Left anterior fascicular block; I10 Essential (primary) hypertension; M79.7 Fibromyalgia; K57.90 Diverticulosis of intestine, part unspecified, without perforation or abscess without bleeding; Z79.899 Other long term (current) drug therapy; Z87.891 Personal history of nicotine dependence; Z87.11 Personal history of peptic ulcer disease; Z90.49 Acquired absence of other specified parts of digestive tract; Z87.19 Personal history of other diseases of the digestive system; Z90.710 Acquired absence of both cervix and uterus; Z98.891 History of uterine scar from previous surgery; Z98.890 Other specified postprocedural states; Z71.3 Dietary counseling and surveillance; Z88.1 Allergy status to other antibiotic agents; Z88.5 Allergy status to narcotic agent; Z88.8 Allergy status to other drugs, medicaments and biological substances; Z83.3 Family history of diabetes mellitus; Z82.0 Family history of epilepsy and other diseases of the nervous system
CPT/HCPCS: 36415; 74177; 76700; 80053; 80061; 81003; 82150; 82787; 83690; 83880; 84443; 84484; 85025; 85027; 85610; 85730; 86038; 87635; 93005; 96374; 96375; 99285

== ENCOUNTER → 2021-12-09 | Outpatient (CLI) | payer MEDICAID ==
--- NOTE | 2021-12-10 16:08 | BD ---
EXAMINATION TYPE: Axial Bone Density DATE OF EXAM: 12/09/2021 COMPARISON: NONE CLINICAL HISTORY: 51 years year old Female. ICD-10 CODE: MENOPAASAL CLIMACTERIC STATES Z951 Height: 64.7 IN Weight: 294 LBS FRAX RISK QUESTIONS: Secondary Osteoporosis: 3. Menopause before 45: PARTIAL HYST AGE 40 5. Chronic liver disease: FATTY LIVER RISK FACTORS HISTORY OF: Diet low in dairy products/other sources of calcium: YES Postmenopausal woman: PARTIAL HYST AGE 40 MEDICATIONS: Additional Medications: VIT D, OZEMPIC INJECTION, PROPANOLOL, LIPITOR, MAGNESIUM, EXAM MEASUREMENTS: Bone mineral densitometry was performed using the MADS System. Bone mineral density as measured about the Lumbar spine is: ----- L1-L4(G/cm2): 1.526 T Score Values are as follows: ----- L1: 3.1 ----- L2: 3.3 ----- L3: 3.6 ----- L4: 1.2 ----- L1-L4: 2.9 Bone mineral density BASELINE Bone mineral density about the R hip (g/cm2): 1.151 Bone mineral density about the L hip (g/cm2): 1.099 T Score values are as follows: -----R Neck: 0.8 -----L Neck: 0.4 -----R Total: 1.4 -----L Total: 1.0 Bone mineral density BASELINE FRAX%s: The graph provided illustrates a 1.4 chance for a major osteoporotic fx and a 0.0 chance for the hips probability for fx in 10 years time. IMPRESSION: Normal (Values between +1 and -1 indicate normal bone mass). Consider repeating this study in 5 year s or sooner if there is some new clinical indication. NOTE: T-SCORE=SD OF THE YOUNG ADULT MEAN.
--- NOTE | 2021-12-13 18:06 | MM ---
Reason for Exam: Screening (asymptomatic). Last mammogram was performed 3 year(s) and 0 month(s) ago. Patient History: Menarche at age 14. First Full-Term at age 21. Left ovary removed at age 40. Hysterectomy at age 40. Postmenopausal. Risk Values: Libia 5 year model risk: 0.8%. NCI Lifetime model risk: 7.2%. Prior Study Comparison: 09/11/2007 Bilateral Screening Mammogram, [facility]. 08/26/2016 Bilateral MG screening mammo w CAD - 2, [facility]. 12/24/2018 Bilateral MG 3D screening mammo w/cad, [facility]. Tissue Density: The breast tissue is heterogeneously dense. This may lower the sensitivity of mammography. Findings: Analyzed By CAD. No significant change from prior exams. Overall Assessment: Negative, BI-RAD 1 Management: Screening Mammogram of both breasts in 1 year. 1. A clinical breast exam by your physician is recommended on an annual basis and results should be correlated with mammographic findings. 2. The patient should continue monthly self breast exams. 3. A negative mammogram should not preclude additional follow-up of suspicious palpable abnormalities. Electronically signed and approved by: Maxx Flores M.D. Radiologist
== END | disposition home or self-care (01) ==
LOC: RADMAMWWP 16:10
PROVIDERS: ATTEND Obstetrics & Gynecology
DX: Z12.31 Encounter for screening mammogram for malignant neoplasm of breast (principal); Z78.0 Asymptomatic menopausal state; Z90.721 Acquired absence of ovaries, unilateral
CPT/HCPCS: 77063; 77067; 77080

== ENCOUNTER → 2023-05-11 | Outpatient (CLI) | payer MEDICAID ==
--- NOTE | 2023-05-15 06:40 | MM ---
Reason for Exam: Screening (asymptomatic). Last mammogram was performed 1 year(s) and 5 month(s) ago. Patient History: Menarche at age 14. First Full-Term at age 21. Left ovary removed at age 40. Hysterectomy at age 40. Postmenopausal. Risk Values: Libia 5 year model risk: 0.9%. NCI Lifetime model risk: 7.1%. Prior Study Comparison: 08/26/2016 Bilateral MG screening mammo w CAD - 2, [facility]. 12/24/2018 Bilateral MG 3D screening mammo w/cad, [facility]. 12/09/2021 Bilateral MG 3D screening mammo w/cad, [facility]. Tissue Density: There are scattered fibroglandular densities. Findings: Analyzed By CAD. There is no suspicious group of microcalcifications or new suspicious mass in either breast. Overall Assessment: Negative, BI-RAD 1 Management: Screening Mammogram of both breasts in 1 year. . Patient should continue monthly self-breast exams. A clinical breast exam by your physician is recommended on an annual basis. This exam should not preclude additional follow-up of suspicious palpable abnormalities. Note on Libia scores and lifetime risk: 1. A Libia score greater than 3% is considered moderate risk. If this is the case, consider specialist referral to assess eligibility for a risk reducing agent. 2. If overall lifetime risk for the development of breast cancer is 20% or higher, the patient may qualify for future screening with alternating mammogram and breast MRI. Electronically signed and approved by: Maxx Flores M.D. Radiologist
== END | disposition home or self-care (01) ==
LOC: RADMAMWWP 15:55
PROVIDERS: ATTEND Obstetrics & Gynecology
DX: Z12.31 Encounter for screening mammogram for malignant neoplasm of breast (principal); Z78.0 Asymptomatic menopausal state
CPT/HCPCS: 77063; 77067

== ENCOUNTER 2023-09-15 02:12 | Emergency (ER) | payer MEDICAID ==
[2023-09-15 02:24] VITALS: BP 177/81; PULSE 77; RESP 24; TEMP 99.3
--- NOTE | 2023-09-15 02:56 | XR ---
EXAMINATION TYPE: XR KUB DATE OF EXAM: 09/15/2023 2:36 AM CLINICAL HISTORY: Abdominal cramps and constipation. Rule out obstruction. Recent liver ablation. TECHNIQUE: Two Upright KUB images of the abdomen are obtained. COMPARISON: CT abdomen and pelvis October 08, 2020 FINDINGS: Some paucity of bowel gas. Scattered gas seen in nondistended small and large bowel loops. Slight scoliotic curvature to the thoracolumbar spine. Cholecystectomy clips are redemonstrated. Lung bases are clear. No free air is seen. IMPRESSION: Overall nonspecific but likely nonobstructive bowel gas pattern.
--- NOTE | 2023-09-15 03:41 | ED ---
Abdominal Pain HPI - General Chief Complaint: Abdominal Pain Stated Complaint: Constipation Time Seen by Provider: 09/15/23 02:25 Source: patient Mode of arrival: ambulatory Limitations: no limitations - History of Present Illness Initial Comments: 53-year-old female presenting to the ED with a chief complaint of abdominal pain. Patient had an ablation of her liver 4 days ago. Reports that she has not had a bowel movement since 5 days ago. Since then states that she has had some intermittent increasing abdominal pains. Patient is still passing gas. Some intermittent nausea, no vomiting. No changes in urinary habits. Was discharged home with docusate and senna. Also states that she started taking MiraLAX as well yesterday and drink a magnesium citrate today to try and relieve herself. However has been unable to do so prompting presentation to the ED for further evaluation. No fever or chills. No other complaints at this time. - Related Data Home Medications Medication Instructions Recorded Confirmed Calcium Carbonate [Calcium] 600 mg PO DAILY 10/08/20 10/08/20 Cholecalciferol [Vitamin D3 (25 25 mcg PO DAILY 10/08/20 10/08/20 Mcg = 1000 Iu)] Famotidine [Pepcid AC] 20 mg PO BID PRN 10/08/20 10/08/20 Fluticasone Nasal [place] [Flonase 1 spray EA NOSTRIL DAILY PRN 10/08/20 10/08/20 Nasal [place]] Furosemide [Lasix] 40 mg PO BID PRN 10/08/20 10/08/20 Ibuprofen [Motrin] 600 mg PO DAILY PRN 10/08/20 10/08/20 Magnesium Oxide [Magox 400] 400 mg PO DAILY 10/08/20 10/08/20 Potassium Chloride ER [K-Dur 10] 20 meq PO BID PRN 10/08/20 10/08/20 Allergies Allergy/AdvReac Type Severity Reaction Status Date / Time butorphanol [From Stadol] Allergy Rash/Hives Verified 10/09/20 05:40 cefazolin [From Kefzol] Allergy Rash/Hives Verified 10/09/20 05:40 meperidine [From Demerol] Allergy Rash/Hives Verified 10/09/20 05:40 morphine Allergy Anaphylaxis Verified 10/09/20 05:40 Review of Systems ROS Statement: Those systems with pertinent positive or pertinent negative responses have been documented in the HPI. ROS Other: All systems not noted in ROS Statement are negative. Past Medical History Past Medical History: Fibromyalgia, Hypertension History of Any Multi-Drug Resistant Organisms: None Reported Past Surgical History: Appendectomy, Section, Cholecystectomy, Hys terectomy Past Anesthesia/Blood Transfusion Reactions: No Reported Reaction Past Psychological History: No Psychological Hx Reported Smoking Status: Former smoker Past Alcohol Use History: None Reported Past Drug Use History: None Reported - Past Family History Father Family Medical History: Diabetes Mellitus Mother Additional Family Medical History / Comment(s): Multiple sclerosis. General Exam Limitations: no limitations General appearance: alert, in no apparent distress Eye exam: Present: normal appearance Neck exam: Present: normal inspection Respiratory exam: Present: normal lung sounds bilaterally Cardiovascular Exam: Present: regular rate, normal rhythm GI/Abdominal exam: Present: soft (Diffuse abdominal tenderness to palpation. No rebound guarding or rigidity. Bowel sounds normal. No CVA tenderness to percussion bilaterally.) Back exam: Present: normal inspection Neurological exam: Present: alert, oriented X3 Skin exam: Present: warm, dry Course Vital Signs 09/15/23 02:13 Temperature 99.3 F Pulse Rate 77 Respiratory 24 Rate Blood Pressure 177/81 O2 Sat by Pulse 95 Oximetry Medical Decision Making - Medical Decision Making Was pt. sent in by a medical professional or institution ([facility] Handley, [employer], urgent care, hospital, or senior care...) When possible be specific @ -No Did you speak to anyone other than the patient for history (EMS, parent, family, police, friend...)? What history was obtained from this source @ -No Did you review nursing and triage notes (agree or disagree)? Why? @ -I reviewed and agree with nursing and triage notes Were old charts reviewed (outside hosp., previous admission, EMS record, old EKG, old radiological studies, urgent care reports/EKG's, senior care records)? Report findings @ -No old charts were reviewed Differential Diagnosis (chest pain, altered mental status, abdominal pain women, abdominal pain men, vaginal bleeding, weakness, fever, dyspnea, syncope, headache, dizziness, GI bleed, back pain, seizure, CVA, palpatations, mental health, musculoskeletal)? @ -Differential Abdominal Pain Women: Appendicitis, Cholecystitis, diverticulosis, ischemic bowel, pancreatitis, hepatitis, UTI, gastroenteritis, AAA, incarcerated hernia, bowel obstruction, constipation, inflammatory bowel, hepatitis, peptic ulcer disease, splenic infarction, perforated viscus, vulvitis, ovarian torsion, PID, kidney stone, placenta abruption, this is not meant to be an all-inclusive list EKG interpreted by me (3pts min.). @ -None X-rays interpreted by me (1pt min.). @ -KUB interpreted by me showing an overall nonspecific but nonobstructive gas pattern. No significant stool burden. CT interpreted by me (1pt min.). @ -None done U/S interpreted by me (1pt. min.). @ -None done What testing was considered but not performed or refused? (CT, X-rays, U/S, labs)? Why? @ -None What meds were considered but not given or refused? Why? @ -None Did you discuss the management of the patient with other professionals (professionals i.e. , PA, [employer], lab, RT, psych nurse, social media developer, wildlife ecologist, teacher, attendance officer, case supervisor)? Give summary @ -No Was smoking cessation discussed for >3mins.? @ -No Was critical care preformed (if so, how long)? @ -No Were there social determinants of health that impacted care today? How? (Homelessness, low income, unemployed, alcoholism, drug addiction, transportation, low edu. Level, literacy, decrease access to med. care, retirement, rehab)? @ -No Was there de-escalation of care discussed even if they declined (Discuss DNR or withdrawal of care, Hospice)? DNR status @ -No What co-morbidities impacted this encounter? (DM, HTN, Smoking, COPD, CAD, Cancer, CVA, ARF, Chemo, Hep., AIDS, mental health diagnosis, sleep apnea, morbid obesity)? @ -None Was patient admitted / discharged? Hospital course, mention meds given and route, prescriptions, significant lab abnormalities, going to OR and other pertinent info. @ -Discharge 53-year-old female presenting to the ED with complaints of intermittent diffuse abdominal pain for the past 5 days. Concerned as she has not had a bowel movement for the past 6 days despite being on a course of senna, Dukas 8 and most recently started taking MiraLAX and today had a bottle of magnesium citrate. KUB shows an overall nonspecific but likely nonobstructive gas pattern. Patient provided glycerin suppository here and discharged home in stable condition with instructions to continue her regimen. Advised increased fluid intake. Discharged home in stable condition with instructions to follow- up with her PCP. Discussed return precautions with patient who verbalized agreement. Undiagnosed new problem with uncertain prognosis? @ -No Drug Therapy requiring intensive monitoring for toxicity (Heparin, Nitro, Insulin, Cardizem)? @ -No Were any procedures done? @ -No Diagnosis/symptom? @ -Generalized abdominal pain Acute, or Chronic, or Acute on Chronic? @ -Acute Uncomplicated (without systemic symptoms) or Complicated (systemic symptoms)? @ -Uncomplicated Side effects of treatment? @ -No Exacerbation, Progression, or Severe Exacerbation? @ -No Poses a threat to life or bodily function? How? (Chest pain, [place], [place], pneumonia, PE, COPD, DKA, ARF, appy, cholecystitis, CVA, Diverticulitis, Homicidal, Suicidal, threat to staff... and all critical care pts) @ -No Disposition Clinical Impression: Abdominal pain Disposition: HOME SELF-CARE Condition: Good Additional Instructions: Please return to the Emergency Department if symptoms worsen or any other concerns. Please continue your current regimen of stool softeners and senna. Increase your fluid intake. Follow-up with your primary care provider. Is patient prescribed a controlled substance at d/c from ED?: No Referrals: Jessika Alaniz MD [Primary Care Provider] - 1-2 days Time of Disposition: 03:30
[2023-09-15] MEDS: GLYCERIN ADULT SUPPOSITORY 1 EACH RECTAL STA (03:57)
== END 2023-09-15 03:59 | disposition home or self-care (01) ==
LOC: EC 02:12
DX: R10.84 Generalized abdominal pain (principal); I10 Essential (primary) hypertension; M79.7 Fibromyalgia; Z79.899 Other long term (current) drug therapy; Z88.1 Allergy status to other antibiotic agents; Z88.5 Allergy status to narcotic agent; Z88.8 Allergy status to other drugs, medicaments and biological substances; Z87.891 Personal history of nicotine dependence; Z90.49 Acquired absence of other specified parts of digestive tract
CPT/HCPCS: 74018; 99284